=== PATIENT | female | born 1960 | race Caucasian/White ===

== ENCOUNTER 2022-05-22 08:51 | Day surgery (SDC) | payer OTHER ==
[~2022-05-22] VITALS: Ht 157.5 cm; Wt 81.6 kg
[2022-05-22] MEDS ORDERED: fentaNYL citrate 0.05 MG/ML VIAL ONE (09:56)
[2022-05-22] MEDS ORDERED: MIDAZOLAM 2 MG/2 ML VIAL ONE (09:56)
[2022-05-22] MEDS ORDERED: diphenhydrAMINE 50 MG/ML VIAL ONE (09:56)
[2022-05-22] MEDS ORDERED: LIDOCAINE 2% 100 MG/5 ML UJET TP ONE (09:57)
[2022-05-22] MEDS ORDERED: MIDAZOLAM 2 MG/2 ML VIAL IVP ONE (11:20)
[2022-05-22] MEDS ORDERED: fentaNYL citrate 0.05 MG/ML VIAL IVP ONE (11:20)
== END 2022-05-22 11:21 | disposition home or self-care (01) ==
LOC: MOR 08:51 → MMU 08:51 → MOR 11:21
PROVIDERS: ATTEND Internal Medicine Gastroenterology
DX: Z12.11 Encounter for screening for malignant neoplasm of colon (principal); K57.30 Diverticulosis of large intestine without perforation or abscess without bleeding; I10 Essential (primary) hypertension; E11.9 Type 2 diabetes mellitus without complications; E78.5 Hyperlipidemia, unspecified; E66.9 Obesity, unspecified; Z79.82 Long term (current) use of aspirin; Z79.84 Long term (current) use of oral hypoglycemic drugs; Z79.899 Other long term (current) drug therapy; Z20.822 Contact with and (suspected) exposure to COVID-19; Z68.32 Body mass index [BMI] 32.0-32.9, adult
CPT/HCPCS: 45378; 87426; J2250; J3010; J1200